=== PATIENT | female | born 1990 | race Two or more races ===

== ENCOUNTER → 2016-04-09 | Outpatient (CLI) | payer OTHER, MEDICAID ==
--- NOTE | 2016-04-09 13:19 | REP ---
LEFT SECOND DIGIT, FOUR VIEWS: There is no evidence of an acute fracture, dislocation or intrinsic bone disease. IMPRESSION: No fracture or dislocation. Signed by Tuan De Santiago MD 04/10/2016 09:45 A
== END ==
LOC: M LRY 12:32
PROVIDERS: ATTEND Physician Assistant
DX: M79.645 Pain in left finger(s) (principal)